=== PATIENT | female | born 1985 | race Caucasian/White ===

== ENCOUNTER 2019-01-09 14:08 | Outpatient (CLI) | payer OTHER, SELFPAY ==
[2019-01-09 17:17] LABS: HCG Quant, Pregnancy 1213 mIU/mL (1-3)
== END 2019-01-09 14:28 ==
PROVIDERS: Visit Provider Nurse Practitioner Family
DX: N92.6 Irregular menstruation, unspecified (principal)
CPT/HCPCS: 36415; 84702

== ENCOUNTER 2019-01-12 01:11 | Outpatient (CLI) | payer OTHER, SELFPAY ==
--- NOTE | 2019-01-12 13:17 | DI.US_ITS ---
SYMPTOM/DIAGNOSIS: POSITIVE TEST WITH IUD, Z32.01 PELVIC/OB ULTRASOUND: A transvaginal ultrasound was performed and shows an intrauterine gestational sac containing a yolk sac. No cardiac activity identified at this time. Mean sac size would suggest gestational age of 5 weeks 2 days and an EDC of 09/12/19. There is a presumed corpus luteum cyst of the right ovary. CONCLUSION: Findings consistent with intrauterine gestation about 5 weeks gestational age with yolk sac identified. Viability not confirmed at this time.
[2019-01-12 13:56] LABS: HCG Quant, Pregnancy 3758 mIU/mL (1-3)
== END 2019-01-12 01:31 ==
PROVIDERS: Visit Provider Nurse Practitioner Family
DX: N92.6 Irregular menstruation, unspecified (principal); Z32.01 Encounter for pregnancy test, result positive; Z30.431 Encounter for routine checking of intrauterine contraceptive device; N83.11 Corpus luteum cyst of right ovary
CPT/HCPCS: 36415; 76830; 76856; 84702

== ENCOUNTER 2019-02-13 15:04 | Outpatient (CLI) | payer OTHER, SELFPAY ==
[2019-02-13 15:41] LABS: Abs Immature Grans 0.04 k/cumm (0.0-0.09); Absolute Basophil Count 0.04 k/cumm (0.0-0.2); Absolute Eosinophil Count 0.11 k/cumm (0.0-0.7); Absolute Lymphocyte Count 3.68 k/cumm (1.2-3.4); Absolute Neutrophil Count 6.39 k/cumm (1.2-6.7); Basophils % 0.4; HGB 13.5 g/dL (12.0-15.5); Immature Grans % 0.4; Lymphocytes % 33.9; Mean Corp. HGB Concentration 34.6 g/dL (32.0-36.0); Mean Corpuscular Hemoglobin 30.3 pg (27.0-33.0); Mean Corpuscular Volume 87.4 fL (80-95); Mean Platelet Volume 9.7 fL (8.0-11.0); Monocytes % 5.5; Neutrophils % 58.8; Platelet Count 356 x1000/uL (130-400); RBC 4.46 m/cumm (4.00-5.20); White Blood Cell Count 10.86 k/cumm (4.4-10.8)
[2019-02-13 16:56] LABS: TSH (W/Ref FT4) 2.33 uIU/mL (0.358-3.74)
[2019-02-16 10:40] LABS: Hepatitis B Surface Ag Negative (NEGAT)
[2019-02-16 10:41] LABS: HIV-1/2 Ag & Ab Screen Negative (NEGAT)
[2019-02-16 11:11] LABS: Hepatitis C Ab w Rflx HCV PCR Negative (NEGAT)
[2019-02-16 11:23] LABS: Rubella IgG Ab (UVM) Positive
[2019-02-16 11:33] LABS: Syphilis Serology (RPR) Negative (Negative)
[2019-02-16 11:39] LABS: Varicella IgG Antibody Positive
== END 2019-02-13 15:24 ==
PROVIDERS: Visit Provider Advanced Practice Midwife
DX: Z34.91 Encounter for supervision of normal pregnancy, unspecified, first trimester (principal); Z11.4 Encounter for screening for human immunodeficiency virus [HIV]; Z11.59 Encounter for screening for other viral diseases; Z01.84 Encounter for antibody response examination
CPT/HCPCS: 36415; 80055; 86787; 86803; 86850; 86900; 86901; 87340; 87389; 84443; 86592; 86762

== ENCOUNTER 2019-02-13 17:17 | Outpatient (REF) | payer OTHER, SELFPAY ==
--- NOTE | 2019-02-13 15:00 | PAPFT_PTH ---
PATIENT: Ceci Lacy LOC: [facility] U#:[id number] AGE/SX: 33/F ROOM: RE02/13/[address]: Rossy Strange CNM : 1985 BED: DIS: 02/13/2019 SPEC #: [id number] RECD: 02/13/19 18:21 STATUS: FREDDY REBenjamin #: [id number] KERMIT: 02/13/19 15:[address]: Rossy Strange DEPT: [facility] Cytology RECD BY: Tiffany Barcenas ENTERED: 02/13/19 18:21 SP TYPE: PAPFT OT DR: None Tissues: 1 - CX/ENDOCX FOR PAP SMEARS Procedures: PAP THIN PREP/UVM Screening HPV DNA PROBE Comments: [id number]
[2019-02-13 18:30] LABS: *AMPHETAMINES SCREEN URINE Negative (Negative); *BARBITURATES SCREEN URINE Negative (Negative); *BENZODIAZEPINES SCREEN URINE Negative (Negative); Cannabinoids THC Negative (Negative); Cocaine Screen,Urine Negative (Negative); METHADONE URINE SCREEN Negative (Negative)
[2019-02-13 18:49] LABS: Tricyclic Antidepressants Negative (Negative)
[2019-02-13 19:03] LABS: OPIATES URINE SCREEN Negative (Negative)
[2019-02-16 13:50] LABS: Chlamydia Result Negative; GC Result Negative; Specimen Description CERVIX
[2019-02-18 08:34] LABS: Buprenorphine Negative; Norbuprenorphine Negative
== END 2019-02-13 17:37 ==
LOC: LBN 17:17
PROVIDERS: Visit Provider Advanced Practice Midwife
DX: Z34.91 Encounter for supervision of normal pregnancy, unspecified, first trimester (principal); Z11.3 Encounter for screening for infections with a predominantly sexual mode of transmission; Z12.4 Encounter for screening for malignant neoplasm of cervix; Z11.51 Encounter for screening for human papillomavirus (HPV)
CPT/HCPCS: 80307; 87491; 87591; 88142; 87086; 87624

== ENCOUNTER 2019-03-03 14:32 | Outpatient (REF) | payer OTHER, SELFPAY | END 2019-03-03 14:52 | LOC: LBN 14:32 | PROVIDERS: Visit Provider Obstetrics & Gynecology | DX: R33.9 Retention of urine, unspecified (principal) | CPT/HCPCS: 87086 ==

== ENCOUNTER 2019-03-17 10:48 | Outpatient (CLI) | payer OTHER, SELFPAY ==
[2019-03-17 11:06] LABS: Kit/Specimen SENT
== END 2019-03-17 11:08 ==
PROVIDERS: Visit Provider Obstetrics & Gynecology Gynecology
DX: Z34.91 Encounter for supervision of normal pregnancy, unspecified, first trimester (principal); Z36.89 Encounter for other specified antenatal screening
CPT/HCPCS: 36415

== ENCOUNTER 2019-04-15 00:26 | Outpatient (CLI) | payer OTHER, SELFPAY ==
--- NOTE | 2019-04-15 13:47 | DI.US_ITS ---
SYMPTOMS/DIAGNOSIS: MORPHOLOGY, Z34.90-SUPERVISION OF NORMAL , UNSPECIFIED TRIMESTER OB ULTRASOUND: Predicted Gestational Age: Indication/History: 18+2 Wks Range: 17+2 to 19+2 Prior US done on: Determined by: X First US LMP History EDC by prior US: 09/14/19 For multiple gestations: Baby PLACENTA: Grade: Location: Anterior Posterior PRESENTATION: RT LT LOW LYING PREVIA Cephalic Trans (Head RT LT ) Varied X Breech BIOMETRY: Anatomy Identified: BPD: 40 mm 18+2 wks 4 chamber Heart X Heart Rate 160 BPM HC: 155 mm 18+3 wks LVOT X Post Fossa X AC: 128 mm 18+3 wks RVOT X Ventricles X FL: 30 mm 19+1 wks Stomach X Nose X Bladder X Lips X Cisterna Magna: 2.5 mm CI: 75 Kidneys X Palate X Cerebellum: 1.84 cm 3-vessel cord X Spine X EFW: 254 grms 72% Cord Insertion X NS= not seen Composite Age (US) 18+4 wks Many abnormalities cannot be diagnosed. A normal exam does not exclude congenital abnormality. EDC by US 09/12/19 Amniotic Fluid Index: Normal COMMENTS: Placental tip is 2.72 cm from internal os RUQ: LUQ: RLQ: LLQ: Total: cm Biophysical Profile: Score 0/2 LONNIE (>2cm) Respirations (>30 sec) Body flexion/extension Extremity flexion/extension TOTAL SCORE
== END 2019-04-15 00:46 ==
PROVIDERS: Visit Provider Obstetrics & Gynecology Gynecology
DX: Z34.92 Encounter for supervision of normal pregnancy, unspecified, second trimester (principal)
CPT/HCPCS: 76805

== ENCOUNTER 2019-06-04 02:13 | Outpatient (CLI) | payer OTHER, SELFPAY ==
[2019-06-04 16:14] LABS: HCT 34.6 % (36.0-46.0); HGB 11.6 g/dL (12.0-15.5); Mean Corp. HGB Concentration 33.5 g/dL (32.0-36.0); Mean Corpuscular Hemoglobin 29.8 pg (27.0-33.0); Mean Corpuscular Volume 88.9 fL (80-95); Mean Platelet Volume 10.3 fL (8.0-11.0); Platelet Count 313 x1000/uL (130-400); RBC 3.89 m/cumm (4.00-5.20); RBC Distribution Width 12.9 % (11.7-14.6); White Blood Cell Count 12.63 k/cumm (4.4-10.8)
[2019-06-04 16:42] LABS: Glucose,1 Hr (Glucola) 96 mg/dL (80-140)
== END 2019-06-04 02:33 ==
PROVIDERS: Visit Provider Obstetrics & Gynecology
DX: Z34.92 Encounter for supervision of normal pregnancy, unspecified, second trimester (principal)
CPT/HCPCS: 36415; 82950; 85027

== ENCOUNTER 2019-07-06 00:38 | Outpatient (CLI) | payer OTHER, SELFPAY ==
--- NOTE | 2019-07-06 08:34 | DI.US_ITS ---
EXAM: US OB LONNIE WEIGHT CLINICAL HISTORY: Size greater than dates, Z34.90. TECHNIQUE: Ultrasound performed using standard protocol. COMPARISON: US OB 2-3 trimester from 04/15/2019 FINDINGS: A viable cephalic felipe is demonstrated. Amniotic fluid index is normal. The measurements suggests a gestational age of 31 weeks and 3 days. Estimated weight is [address] nta is anterior. Please see the ultrasound worksheet for the complete results of this examination.
== END 2019-07-06 00:58 ==
PROVIDERS: Visit Provider Obstetrics & Gynecology
DX: O26.843 Uterine size-date discrepancy, third trimester (principal)
CPT/HCPCS: 76816

== ENCOUNTER 2019-07-14 15:24 | Observation (INO) | payer OTHER, SELFPAY ==
[2019-07-14 16:04] LABS: Bilirubin Negative (Negative); Blood Small (Negative); Clarity Clear (Clear); Glucose Negative (Negative); Ketones Negative (Negative); Leukocyte Esterase Trace (Negative); Nitrite Negative (Negative); Specific Gravity <= 1.005 (1.005-1.025); Urobilinogen 0.2 EU/dL (Up TO 0.2)
[2019-07-14 16:18] LABS: Bacteria Few HPF (Negative); C & S Indicated? No/Sq. Contamination; Casts Negative LPF (Negative); Crystals Negative HPF (Negative); Epithelial Cells Moderate HPF (Negative); Mucus Negative (Negative); RBC 0-2 (0-2); WBC 0-2 HPF (0-5)
== END 2019-07-14 16:51 | disposition home or self-care (01) ==
PROVIDERS: Admitting Provider Obstetrics & Gynecology; Visit Provider Obstetrics & Gynecology
DX: O60.03 Preterm labor without delivery, third trimester (principal); Z3A.31 31 weeks gestation of pregnancy
CPT/HCPCS: 81003; 81015; G0378

== ENCOUNTER 2019-08-04 01:21 | Outpatient (CLI) | payer OTHER, SELFPAY ==
--- NOTE | 2019-08-04 13:22 | DI.US_ITS ---
EXAM: US OB LONNIE WEIGHT CLINICAL HISTORY: Size greater than dates, , Z34.90, O26.849 TECHNIQUE: Ultrasound performed using standard protocol. COMPARISON: US OB LONNIE WEIGHT from 07/06/2019 US OB LONNIE WEIGHT from 07/06/2019 FINDINGS: Fetus is in cephalic position. The placenta is grade 2 and anterior. The biometric measurements co rrespond to 34 weeks 4 days, within the expected range. The estimated weight is 2460 grams, at the percentile. The amniotic fluid index is normal at 12.9. IMPRESSION: size and weight are within the expected range
== END 2019-08-04 01:41 ==
PROVIDERS: Visit Provider Obstetrics & Gynecology
DX: O26.843 Uterine size-date discrepancy, third trimester (principal)
CPT/HCPCS: 76816

== ENCOUNTER 2019-08-12 16:31 | Outpatient (REF) | payer OTHER, SELFPAY | END 2019-08-12 16:51 | LOC: LBN 16:31 | PROVIDERS: Visit Provider Obstetrics & Gynecology | DX: Z34.93 Encounter for supervision of normal pregnancy, unspecified, third trimester (principal); Z36.85 Encounter for antenatal screening for Streptococcus B | CPT/HCPCS: 87081 ==

== ENCOUNTER 2019-08-20 21:20 | Outpatient (REF) | payer OTHER, SELFPAY ==
[2019-08-20 18:44] LABS: *AMPHETAMINES SCREEN URINE Negative (Negative); *BARBITURATES SCREEN URINE Negative (Negative); *BENZODIAZEPINES SCREEN URINE Negative (Negative); Cannabinoids THC Negative (Negative); Cocaine Screen,Urine Negative (Negative); METHADONE URINE SCREEN Negative (Negative); OPIATES URINE SCREEN Negative (Negative)
[2019-08-20 18:53] LABS: Tricyclic Antidepressants Negative (Negative)
[2019-08-28 08:59] LABS: Buprenorphine Negative; Norbuprenorphine Negative
== END 2019-08-20 21:40 ==
LOC: LBN 21:20
PROVIDERS: Visit Provider Obstetrics & Gynecology
DX: Z34.93 Encounter for supervision of normal pregnancy, unspecified, third trimester (principal)
CPT/HCPCS: 80307

== ENCOUNTER 2019-09-08 07:30 | Outpatient (CLI) | payer OTHER, SELFPAY ==
[2019-09-08 14:52] LABS: Abs Immature Grans 0.29 k/cumm (0.0-0.09); Absolute Basophil Count 0.04 k/cumm (0.0-0.2); Absolute Eosinophil Count 0.13 k/cumm (0.0-0.7); Absolute Monocyte Count 0.92 k/cumm (0.11-0.7); Absolute Neutrophil Count 9.61 k/cumm (1.2-6.7); Basophils % 0.3; Eosinophils % 0.9; HCT 32.3 % (36.0-46.0); HGB 10.7 g/dL (12.0-15.5); Lymphocytes % 22.7; Mean Corp. HGB Concentration 33.1 g/dL (32.0-36.0); Mean Corpuscular Hemoglobin 28.8 pg (27.0-33.0); Mean Corpuscular Volume 87.1 fL (80-95); Mean Platelet Volume 10.5 fL (8.0-11.0); Monocytes % 6.5; Neutrophils % 67.6; Platelet Count 293 x1000/uL (130-400); RBC 3.71 m/cumm (4.00-5.20); White Blood Cell Count 14.21 k/cumm (4.4-10.8)
[2019-09-08 14:59] LABS: Absolute Lymphocyte Count 3.23 k/cumm (1.2-3.4)
== END 2019-09-08 07:50 ==
PROVIDERS: Visit Provider Obstetrics & Gynecology
DX: Z30.2 Encounter for sterilization (principal); Z01.818 Encounter for other preprocedural examination; Z01.812 Encounter for preprocedural laboratory examination
CPT/HCPCS: 86850; 86900; 86901; 85025

== ENCOUNTER 2019-09-08 13:53 | Outpatient (CLI) | payer OTHER, SELFPAY | END 2019-09-08 14:13 | PROVIDERS: Visit Provider Obstetrics & Gynecology | DX: Z01.818 Encounter for other preprocedural examination (principal) ==

== ENCOUNTER 2019-09-09 05:59 | Inpatient (IN) | payer OTHER, SELFPAY ==
[2019-09-09 06:00] VITALS: BP 134/90; PULSE 95; RESP 18; TEMP 37; O2SAT 97
[2019-09-09 06:14] VITALS: BP 134/90; PULSE 95; RESP 18; TEMP 37; O2SAT 97
[2019-09-09] MEDS: Lactated Ringers 1,000 ML 125 ML IV ×2 (06:37→08:34)
[2019-09-09] MEDS: ceFAZolin 2 GM/50 ML BAG IVPB (07:43)
--- NOTE | 2019-09-09 08:15 | FALL_PTH ---
PATIENT: Ceci Lacy LOC: OBS U#:[id number] AGE/SX: 33/F ROOM: OBS.303 RE09/09/[address]: Alexander Hernandez MD : 1985 BED: A DIS: 09/11/2019 SPEC #: [id number] RECD: 09/09/19 12:41 STATUS: FREDDY REQ #: [id number] KERIMT: 09/09/19 08:[address]: Alexander Hernandez DEPT: Surgical Specimen RECD BY: Tiffany Barcenas ENTERED: 09/09/19 12:42 SP TYPE: Fall OTHR DR: None Tissues: 1 - FALLOPIAN TUBE (STERILIZATION) 2 - FALLOPIAN TUBE (STERILIZATION) Procedures: GROSS AND MICRO LEVEL 2 Comments: [id number]
--- NOTE | 2019-09-09 09:04 | ROE_ITS ---
Date of service: 09/09/19 Time of Service: 09:04 Operative Note Operative Note DATE OF PROCEDURE: 09/09/19 PRE-OP DIAGNOSIS: 1. 39 weeks. Prior section. 2. Multiparity and desire for permanent sterilization POST-OP DIAGNOSIS: same PROCEDURE: 1. Repeat low transverse section 2. Bilateral salpingectomy SURGEON: Alexander Hernandez ASSISTING SURGEON: Wilbur Melendrez ANESTHESIA: spinal ESTIMATED BLOOD LOSS: 600 PATHOLOGY: other (Bilateral fallopian tubes) COMPLICATIONS: None Patient was transported to: floor Patient's condition: stable Findings: 1. Delivered a liveborn vigorous female infant with score of 9 and 9. Nuchal cord x2 Procedure Description: The patient was taken to the operating room and after adequate spinal anesthesia was obtained the patient was placed in supine position with a left lateral tilt. The patient was prepped and draped in usual sterile manner. A Pfannenstiel incision was made through the previous scar and carried down to the underlying layer fascia. The fascia incised the midline with a scalpel and the incision carried laterally in either direction with Posada scissors. The superior and inferior aspects of the fascial incision were dissected off the underlying layer of rectus muscles using both blunt and sharp dissection. The rectus muscles were divided along the linea alba with blunt and sharp dissection. The peritoneum was entered sharply at the superior end. The peritoneal incision was carried superiorly inferiorly with blunt and sharp dissection. The Dru retractor was placed. The vesicouterine flap was tented up with pickups and incised sharply with Metzenbaum scissors and the bladder flap was then created digitally. The lower uterine segment was incised in a transverse manner with a scalpel and the incision was carried laterally in either direction by stretch. The infant was found in cephalic presentation and delivered atraumatically. Nuchal cord x2 was noted. Mouth and nose were suctioned. Cord was clamped cut and the infant was handed off to the waiting supervisor gear repair. The placenta was manually extracted. The uterus was cleared of all clots and debris. The hysterotomy was closed with a running lock stitch of #1 chromic. A second indicating layer of lump 1 chromic in a Lambert stitch was used to obtain hemostasis and complete the repair. The bladder flap was reapproximated with a running stitch of 3-0 Vicryl. The left fallopian tube was grasped and elevated with 2 Umer clamps. Dissection was carried across the mesosalpinx with the LigaSure device. Dissection was carried to the proximal fallopian tube which was transected. The tube was handed off for pathology. Attention was then turned upside where similar procedure was carried out. All sites of dissection were noted to be hemostatic. The peritoneum was closed with a running stitch of 2-0 Vicryl. The subfascial space was thoroughly inspected and was noted to be hemostatic. The fascia was closed with a running stitch of 0 Vicryl. The subtenons tissues were closed with interrupted 3-0 Vicryl. A deep dermal stitch of 3-0 Vicryl was also used in a running fashion. The skin was closed with a running subcuticular stitch of 4 Monocryl. Dermabond was applied. The current procedure was concluded at this point. Sponge, lap and needle counts were correct at the conclusion of the procedure and the patient was transferred to PACU stable.
[2019-09-09] MEDS: Normal Saline Flush 10 ML SYR IVP (12:44)
[2019-09-09] MEDS: Ketorolac 30 MG/ML VIAL IVP (14:27)
[2019-09-09] MEDS: Lactated Ringers 1,000 ML 120 ML IV (15:55)
[2019-09-09] MEDS: Ibuprofen 600 MG TAB PO (20:20)
[2019-09-10] MEDS: Ibuprofen 600 MG TAB PO ×3 (02:20→18:01)
[2019-09-10 07:51] LABS: HGB 9.7 g/dL (12.0-15.5); Mean Corp. HGB Concentration 32.3 g/dL (32.0-36.0); Mean Corpuscular Hemoglobin 28.1 pg (27.0-33.0); Mean Platelet Volume 10.3 fL (8.0-11.0); Platelet Count 282 x1000/uL (130-400); RBC 3.45 m/cumm (4.00-5.20); RBC Distribution Width 13.2 % (11.7-14.6); White Blood Cell Count 16.86 k/cumm (4.4-10.8)
[2019-09-10] MEDS: oxyCODONE 5 mg/Acetaminophen 325 mg TAB PO ×4 (08:18→21:47)
[2019-09-10] MEDS: Pantoprazole 20 MG TABCR PO (08:19)
[2019-09-10] MEDS: Prenatal Multivitamin w/CA,FE TAB 1 TAB PO (08:19)
[2019-09-10] MEDS: Fexofenadine 180 MG TAB PO (10:38)
[2019-09-10] MEDS: Psyllium PKT 1 EACH PO (10:38)
[2019-09-11] MEDS: Ibuprofen 600 MG TAB PO ×2 (00:55→08:06)
[2019-09-11] MEDS: Acetaminophen 325 MG TAB 650 MG PO (08:03)
[2019-09-11] MEDS: Psyllium PKT 1 EACH PO (08:03)
[2019-09-11] MEDS: Prenatal Multivitamin w/CA,FE TAB 1 TAB PO (08:05)
[2019-09-11] MEDS: Fexofenadine 180 MG TAB PO (08:05)
[2019-09-11] MEDS: Pantoprazole 20 MG TABCR PO (08:06)
--- NOTE | 2019-09-11 09:01 | W.PM.DS.N ---
Date of service: 09/11/19 Time of Service: 09:01 DS: Diagnosis Discharge Diagnosis (1) History of elective section: Status: Acute Discharge Plan Disposition Patient Disposition: HOME Condition: Good Discharge Details Reason For Visit: STERILIZATION Admit Date/Time: 09/09/19 05:59 Admit Provider: Alexander Hernandez Attending Provider: Alexander Hernandez Primary Care Provider: None,None Hospital Course Hospital Course: Patient was admitted morning of surgery and underwent the above-stated procedure without complications. She had a viable female infant weighing 7 lb0oz (3170) at 39 weeks EGA. She will be named Belkis. Patient was discharged home on postop day #2 tolerating regular diet and using Percocet and ibuprofen for pain relief. Incision was clean dry and intact she was successfully breast-feeding at the time of discharge. The plan is to have her follow-up with Dr. Hernandez in [facility] she will be given a prescription for Percocet and instructed to use qeho-lda-hxkrjgs ibuprofen. Patient plans to continue to use Metamucil to prevent constipation. Home Meds and New Rx's Prescriptions: No Action prenat.vits,boby,cpp-gtsk-ntcwn tablet 1 tab PO DAILY RF: 0 aspirin [Aspirin Low Dose] 81 mg tablet,delayed release (DR/EC) 81 mg PO DAILY Qty: 90 RF: 3 Metamucil 3.4 gram/5.4 gram powder 1 tbs PO DAILY RF: 0 pantoprazole 20 mg tablet,delayed release (DR/EC) 20 mg PO DAILY Qty: 30 RF: 2 fexofenadine [Bertha Allergy] 180 MG tablet 180 mg PO DAILY RF: 0 Discharge Instructions Additional Instructions: Prescription for Percocet 5/325 1 to 2 tablets every 6 hours as needed for pain. #10 dispensed. I have given a prescription for ibuprofen. You may use goyx-ogc-pisxwba ibuprofen if desired. Stand Alone Forms: BC Instructions, BC Discharge Instruc Activity:: Activity as Tolerated Equipment/Supplies:: No Equipment Needed Diet:: As Tolerated Discharge Orders Discharge Orders: Discharge Order (Routine); Ordered 09/11/19 Ordered By: Gladis Chisholm DS: Summary Status at Discharge Functional status at discharge: independent ambulation Overall status at discharge: patient is progressing back to baseline Mental Status: mental status grossly normal Speech and Movement: speech and movement normal Mood: congruent mood Affect: normal affect Exam Const General: no acute distress Nutritional Appearance: overweight Orientation: alert, awake and oriented x3 Chest Breast inspection: normal inspection of the breasts (No evidence of nipple excoriation or cracking. No engorgement.) Resp Effort & Inspection: normal respiratory effort Auscultation: clear to auscultation bilaterally Cardio Rate: regular rate Rhythm: regular rhythm GI Inspection: normal to inspection (Incision clean dry and intact. Skin glue in place) Palpation: soft and tender (Right greater than left side) General: deferred Back/Spine/Pelvis Back: no CVA tenderness Skin General skin exam: no rashes or lesions noted Extrem General: normal to inspection, full ROM, normal capillary refill and no pedal edema Psych Appearance: grossly normal Mental Status: mental status grossly normal Speech and Movement: speech and movement normal Mood: congruent mood Affect: normal affect DS: Data Vitals/I&O Vitals and I&O: Vital Signs Temperature 98.6 F 09/09/19 06:14 Pulse 95 H 09/09/19 06:14 Pulse Rhythm Regular 09/09/19 06:14 Respiratory Rate 18 09/09/19 06:14 Respiratory Effort Non-Labored 09/09/19 06:14 Respiratory Depth Normal 09/09/19 06:14 Respiratory Pattern Normal 09/09/19 06:14 Blood Pressure 134/90 09/09/19 06:14 Pulse Oximetry 97 09/09/19 06:14 Oxygen Delivery Method Room Air 09/09/19 06:14 Oxygen Flow Rate 0 09/09/19 06:14 Pain Level 6 09/11/19 08:06 [facility] Medical History (Updated 09/11/19 @ 09:03 by Gladis Chisholm MD) History of elective section (Acute) 09/09/2019 with bilateral salpingectomy. Roni Tamayo Positive test (Acute) Surgical History (Updated 09/11/19 @ 09:06 by Gladis Chisholm MD) Hx of wisdom tooth extraction (Acute) Previous section (Chronic) 10/02/2015 PCS for failed IOL. Senthil Wills. 09/09/2019 elective repeat. Roni Tamayo Social History (Updated 09/11/19 @ 09:06 by Gladis Chisholm MD) Smoking/Tobacco Use Status: Never Alcohol Intake: former (social wine drinker, stopped when became ) Drug use: Never Substance use type: does not use Household members: spouse, children and other Details: H-Gregory. S-Elma. D-Belkis. Number of Children: 2 Education Level: college Details: 17yrs of education History History 3 Para 0 Hx # Term Pregnancies 1 Multiple births 0 Hx # Pregnancies 0 Ectopic pregnancies 0 AB induced 0 Hx Number of Living Children 1 AB spontaneous 1 Past Pregnancies Del. Date GA/Weeks # Outcome Route Wgt Sex Labor Lgth Anesthesia Location [facility] Compl 10/02/15 39 No Successful 7 lb 2 oz Male Infant named Elma. regional [facility] Linda & Dr. Carmona 09/09/19 39 No Successful 7 lb Female Elective repeat Alexander Hernandez Delivery Date: 10/02/15 On 03/13/19 @ 17:54 Gladis Chisholm IOL for high BP, 3 days later without dilating, epidural and went to full dilation, pushed 30 minutes and heartbeat dropped, emergency C/S Delivery Date: 09/09/19 On 09/11/19 @ 09:08 Gladis Chisholm Patient declined trial of labor. Bilateral salpingectomy at time of . Weight: 3170 g. Belkis
== END 2019-09-11 13:30 | disposition home or self-care (01) | DRG 785 ==
LOC: PDS 06:00 → OBS 09:40
PROVIDERS: Admitting Provider Obstetrics & Gynecology; Visit Provider Obstetrics & Gynecology
PROC: 10D00Z1 Extraction of Products of Conception, Low, Open Approach (ICD-10-PCS; CPT 59514; principal; 2019-09-09 07:30)
DX: O34.211 Maternal care for low transverse scar from previous cesarean delivery (principal); Z37.0 Single live birth; Z3A.39 39 weeks gestation of pregnancy; O69.81X0 Labor and delivery complicated by cord around neck, without compression, not applicable or unspecified; Z30.2 Encounter for sterilization; Z79.82 Long term (current) use of aspirin; Z87.59 Personal history of other complications of pregnancy, childbirth and the puerperium
CPT/HCPCS: 59514; 58611; 36415; 85027; NC; 88302; J0131; J0690; J1100; J1885; J2405; J2590; J3010; J3490

== ENCOUNTER 2020-10-03 20:32 | Outpatient (REF) | payer OTHER, SELFPAY | END 2020-10-03 20:52 | LOC: LBN 20:32 | PROVIDERS: Visit Provider Obstetrics & Gynecology | DX: N89.8 Other specified noninflammatory disorders of vagina (principal) | CPT/HCPCS: 87480; 87510; 87660 ==